=== PATIENT | female | born 1950 | race Two or more races ===

== ENCOUNTER 2018-06-12 09:13 | Outpatient (RCR) | payer MEDICARE, MEDICAID ==
[2018-05-22 08:04] VITALS: BP 130/73
--- NOTE | 2018-05-22 08:50 | NUR ---
05/21/18 0956 Patient in office for monthly vitals signs. Pt's vitals are stable and charted. Pt stated she saw her PCP yesterday. Pt states her doctor is ordering her a new blood glucose monitoring kit. Pt stated no new medication changes since last doctor visit. Pt states she is doing well with her diabetes managment. Will continue to follow up with pt.
--- NOTE | 2018-05-26 13:43 | NUR ---
0923 Patient in office stating that she is recieving educational material from the [employer]. Pt showed RN her information.
--- NOTE | 2018-05-27 12:58 | NUR ---
0751 Geometry Professor states the pt has called several times stating she wants to attend IOP today. Geometry Professor will call director to confirm.
--- NOTE | 2018-05-28 11:01 | NUR ---
1007 Patient in office stating that she continues to be unhappy in her recent housing situation. Pt states she called the police last night because there is alot going on in the house with the landlord and family. pt also stated that [employer] called her and told her someone stole her identity. Pt stated that police spoke with the landlords mother in law and son. Pt and RN also discussed that if she is in an emergency situation, she needs to call 911. Pt repeatedly leaves voice messages on drivers work cell phone. RN explained to pt that the gravel truck driver handles call regarding transportation. Pt left a message for gravel truck driver last night stating something to the effect that she needs to get out of this place. Green Marketing Analyst did not hear this message until the following morning during business hours. Drivers message urges to call 911 if this is an urgent message and not related to transportation issues. Pt states she calls his phone often because she wants to know if her phone works. Pt states the landlord and family have control over her cell phone and that she cannot always make phone calls or recieve phone calls. Pt states having problems with her phone often. Pt advised to go to [facility] to have her phone looked at. Pt states she has and they fix it. RN and Pt also discussed if she can talk to her PCP about looking into having help such as with a social work case manager. Pt had a social work case manager through [facility] but gave it up for a different doctor. Pt was advised by [employer] to fill out a report on the identity being stolen. Will follow up with pt.
--- NOTE | 2018-05-29 13:47 | NUR ---
1015 Patient called stating to RN that she had an eviction sign on her door. Pt states she called the police. Pt could not give an answer when asked what the police had to say about this. Pt did not make sense stating the PD asked her if the sign on her door was signed by a internal control specialist. Pt could not answer stating: I don't know, i told them i won't touch the sign". RN asked pt if she has spoken with her family about her situation. Pt says she told her son and he told her to try and handle it on her own. RN will bring this to the attention of the diretor for advice on how to handle this matter further.
--- NOTE | 2018-06-03 07:26 | NUR ---
05/30/18 0730 Call from patient. RN can hear that patient is somewhere noisy. Patient asking to speak with RN. RN asks the patient if this is an emergency. Pt states yes. RN states to pt to hang up with her and call 911. Pt then states this is not an emergency. Pt states that she went to the emergency room last night and is now at physical therapy. RN is confused and asks how she got to physical therapy. Pt states she walked. RN asks pt to put someone on the phone as RN is unsure what is going on. Jeana, salon receptionist states the pt stated to her that she walked there from the hospital this morning. Jeana is instructed by RN to call 911 and have the pt assessed. 0810 Call back to physical therapy office and spoke with director. He states police is here assessing the patient. Will follow up with patient.
--- NOTE | 2018-06-03 08:01 | NUR ---
05/30/18 1406 Call to patient to inquire on how she is doing since early this mornings confusion with her walking to a doctors office from the hospital. Pt states she went to the hospital last night for lower back pain around 2100 hours. She states she was discharged at 2200 hours and did not have a ride home. Pt states the hospital called her son but there was no answer. The hospital called her landlord as well. Pt was unable to answer what happened that nobody picked her up. Pt states she stayed in hospital walking around until 0700 and then walked to a nearby Physical therapy office and called here at [facility]. Will continue to follow up.
--- NOTE | 2018-06-05 07:22 | NUR ---
06/03/18 0902 Patient in office stating she is seeing her PCP this Saturday at 1315. Pt states she feels better since her recent trip to the Emergency room, diagnosed with sciatica. Pt states she still has not gotten the medications that the hospital had prescribed. Pt states she will show the discharge papers and medications prescribed to her PCP on Saturday. Pt states again that she feels okay today and that she took a walk this morning. Pt states she has been up since 0200 and watered her landlords bedolla. Pt states she is going to inquire about physical therapy from her PCP. Pt and RN talked about her housing situation and her past experiences in group homes and [facility]. Pt states that [address] is too expensive. Pt seemed more receptive to the idea of going into an assisted living facility. Pt's vitals: BP 131/85, P 89 RR 18 Will continue to follow up with pt.
--- NOTE | 2018-06-05 10:05 | NUR ---
06/04/18 1045 Patient in for Treatment team with Dr Tipton. Pt presents clean and neat, alert and oriented x 4. Pt is in a pleasant mood. Pt discussed with doctor her recent problems with her housing. Pt discussed with doctor her frequent calls for an ambulance and trips to the emergency room. RN discussed with the doctor the benefits of pt moving to [facility] for more assistance. Doctor agreed. Pt states she does not want to live in any assisted homes. Pt told doctor that she rang her medic alert because she needed a ride home. pt states that the medical agency/PD informed pt that if she continues to abuse the system, she will be charged accordingly. Pt does not feel she is abusing the system. Doctor again stated that he feels an [facility] may be more helpful for the patient. Doctor is going to increase the patients abilify from 15 to 20mg daily. Pt will continue with IOP 3x/week Pt will follow up next month, July 02, 2018 at 1330. Treatment team concluded.
--- NOTE | 2018-06-09 07:44 | NUR ---
06/05/18 0708 Patient called stating she was unsure if she was getting picked up for IOP today. Pt has already attended IOP 3x this week. RN asked pt how she was doing. Pt stated she is doing okay. Pt stated she is going to do some home searching today as she needs to move out of her apartment.
[~2018-06-12] VITALS: Ht 162.6 cm; Wt 94.8 kg
--- NOTE | 2018-06-12 07:31 | NUR ---
06/11/18 0921 Patient in office with her blood pressure kit from home asking if we have batteries. RN took patients vitals: BP 120/77, P 91 RR 18. Pt stated her blood glucose this morning is 98. RN praised pt on taking care of herself and taking her medications as prescribed. pt stated that she is moving. Pt states she found an apartment for herself. Will continue to follow up with patient.
[~2018-06-12 09:13] MED LIST: ABILIFY10 M1 PO; ABILIFY15 MG PO; ABILIFY20 MG PO; CYCLOBENZAPR10 MG PO; DIVALPROEX SOD500 M2 PO; DOCUSATE SOD100 M2 PO; FOLIC ACID1 M1 PO; LEVOTHYROXIN50 MCG PO; METFORMIN500 M1 PO; METOPROLOL SUCC25 MG PO; MULTIVITAMI9 PO; NAPROSYN250 MG PO; NAPROXEN EC500 MG PO; OXYBUTYNIN5 M1 PO; PREDNISONE20 MG PO; TRULICITY0.75 MG/0. SC; TYLENOL # 31 TAB PO; VENLAFAXINE HCL75 MG PO; VICTOZA18 MG/3 ML SC
== END 2018-06-12 23:59 | disposition still patient (30) ==
LOC: PATHWAYS 09:13
PROVIDERS: ATTEND Specialist
DX: F33.8 Other recurrent depressive disorders (principal); F41.1 Generalized anxiety disorder; Z86.59 Personal history of other mental and behavioral disorders; F43.21 Adjustment disorder with depressed mood; R41.81 Age-related cognitive decline